=== PATIENT | male | born 1950 | race Caucasian/White ===

== ENCOUNTER → 2019-04-20 | Outpatient (CLI) | payer MEDICARE ==
[2019-04-20 08:45] LABS: HCT 46.7 % (39.0-53.0); MCH 30.5 pg (25.0-35.0); MCHC 32.2 g/dL (31.0-37.0); MCV 94.6 fL (80.0-100.0); Mean Platelet Volume 7.7; Platelet Count 267 k/uL (150-450); RBC 4.93 m/uL (4.30-5.90); RDW 13.3 % (11.5-15.5); WBC 7.7 k/uL (3.8-10.6)
[2019-04-20 11:19] LABS: Erythrocyte Sedimentation Rate 11 mm/hr (0-15)
[2019-04-20 19:47] LABS: C Reactive Protein 2.2 mg/dL (0.0-0.8); Uric Acid 7.6 mg/dL (3.7-8.7)
== END | disposition home or self-care (01) ==
LOC: LABWHC1 07:58
PROVIDERS: ATTEND Orthopaedic Surgery
DX: M10.9 Gout, unspecified (principal); M79.672 Pain in left foot
CPT/HCPCS: 36415; 83520; 84550; 85027; 85652; 86140

== ENCOUNTER → 2021-01-09 | Outpatient (CLI) | payer MEDICARE ==
--- NOTE | 2021-01-09 15:16 | XR ---
KUB HISTORY: N 20.0, gross hematuria Frontal KUB and 2 images correlated to prior exam 03/04/2016 There are faintly visualized calcifications seen over the kidneys. Lung bases are clear. No evident p neumoperitoneum or bowel obstruction. IMPRESSION: Patient's body habitus limits evaluation. Suspect bilateral nephrolithiasis.
== END | disposition home or self-care (01) ==
LOC: RADXRMAIN 09:31
PROVIDERS: ATTEND Urology
DX: N20.0 Calculus of kidney (principal); R31.0 Gross hematuria
CPT/HCPCS: 74018